=== PATIENT | female | born 1960 | race Two or more races ===

== ENCOUNTER 2025-01-23 07:30 | Observation (INO) | payer MEDICARE, MEDICAID ==
[~2025-01-23] VITALS: Ht 157.5 cm; Wt 80.3 kg
[~2025-01-23 07:30] MED LIST: ALBU8HFA INH; AMIT10TA13 PO; ENAL20TA75 PO; IBUP-1986 PO; PARO10TA4 PO; SIMV5TAB58 PO
[2025-01-23] MEDS ORDERED: IPRA3AMP31 NEB (17:15)
[2025-01-24] VITALS (18 sets, daily range): BP systolic 106–160; BP diastolic 67–101; PULSE 54–80; RESP 10–21; TEMP 97.9–99.5; O2SAT 95–100
[2025-01-24] MEDS: ringers solution, lacted 1,000 ML IV SCH ×2 (05:30→14:35)
[2025-01-24] MEDS: ceFAZolin 2gm/dext,iso 50mL 50 ML IV ONE (05:30)
[2025-01-24] MEDS: VANCOMYCIN/H2O 1.5g/300mL PB 300 ML IV ONE (13:31)
[2025-01-24 13:45] LABS: MEAN PLATELET VOLUME 8.3 FL (7.4-10.4); PRE OP HEMATOCRIT 39.4 % (35.0-45.0); PRE OP HEMOGLOBIN 12.8 g/dL (12.0-16.0); PRE OP PLATELET COUNT 289 X10'3 (140-440); PRE OP WHITE BLOOD COUNT 5.1 10'3 (4.8-10.8); RED CELL DISTRIBUTION WIDTH 15.0 % (11.5-14.5)
[2025-01-24] MEDS: albuterol 2.5 MG/3 ML nebule NEB PRN (13:45)
[2025-01-24 13:57] LABS: PRE OP ANION GAP 7 (8-16); PRE OP AST 15 U/L (10-37); PRE OP BILIRUB, TOTAL 0.4 MG/DL (0.0-1.0); PRE OP GLUCOSE 97 MG/DL (70-104); PRE OP POTASSIUM 4.0 MMOL/L (3.4-5.1); PRE OP SODIUM 141 MMOL/L (135-145); TOTAL CARBON DIOXIDE 29.0 MMOL/L (24-32)
[2025-01-24 14:02] LABS: CREATININE 0.53 MG/DL (0.40-0.90); eCRCL 84 ML/MIN; eGFR > 90 ML/MIN
[2025-01-24] MEDS ORDERED: FLUT1BLS13 INH (14:03)
[2025-01-24] MEDS ORDERED: BUPIVACAINE/MELOXICAM 14 ML VIAL IL ONE (14:08)
[2025-01-24] MEDS ORDERED: ondansetron/PF 4mg/2ml inj IV PRN ×2 (14:30→14:35)
[2025-01-24] MEDS ORDERED: magnesium hydroxide 30ml (MOM) UD suspension PO PRN (14:30)
[2025-01-24] MEDS ORDERED: bisacodyl 10mg suppository rectal RC PRN (14:30)
[2025-01-24] MEDS ORDERED: ipratropium/albuterol 3ml nebule NEB PRN (14:30)
[2025-01-24] MEDS ORDERED: albuterol 2.5 MG/3 ML nebule NEB PRN (14:30)
[2025-01-24] MEDS ORDERED: oxyCODONE IR 5mg (immed. release) tablet PO PRN (14:30)
[2025-01-24] MEDS ORDERED: acetaminophen 1,000mg/100ml IV 100 ML IV PRN (14:35)
[2025-01-24] MEDS ORDERED: labetalol 20mg/4ml (5mg/ml) syringe IV PRN (14:35)
[2025-01-24] MEDS ORDERED: hydrALAZINE 20mg/ml inj. IV PRN (14:35)
[2025-01-24] MEDS ORDERED: morphine 4 MG/ML inj SYRINge IV PRN (14:35)
[2025-01-24] MEDS ORDERED: HYDROmorphone/PF 0.2 MG/ML SYRINGE IV PRN ×2 (14:35)
[2025-01-24 15:48] LABS: PRE OP ALT 20 U/L (30-65)
[2025-01-24] MEDS: ibuprofen tablet 400 MG TABLET PO SCH (16:00)
[2025-01-24] MEDS: ceFAZolin/D5W- 1GM premix 50 ML IV SCH (16:00)
[2025-01-24] MEDS ORDERED: fentaNYL/PF 50MCG/1 ML 2ML syringe ONE (16:23)
[2025-01-24] MEDS ORDERED: MIDAZolam 1 MG/ML 5ML VIAL ONE (16:23)
[2025-01-24] MEDS ORDERED: phenylephrine 10mg/ml inj. ONE (16:30)
[2025-01-24] MEDS ORDERED: ROPIVAcaine 0.5% (5mg/ml) 30ml vial ONE (18:29)
[2025-01-24] MEDS ORDERED: propofol inj 20 ML IV ONE ×2 (18:29)
[2025-01-24] MEDS ORDERED: midazolam 1 mg/ML 2ml injection ONE (18:29)
--- NOTE | 2025-01-24 18:46 | OPERATIVE REPORT ---
Operative Report Operative Report Procedure: Computer-assisted, robotically-assisted, left total knee arthroplasty. Surgeon: Dr. Edi Lindsey Mattress Filling Machine Tender: Yordy Tello MD Anesthesiologist: Dr. Diallo Anesthesia: Spinal anesthetic Indications: 64-year-old female who has chronic osteoarthritis of the left knee with severe pain and limitation of activities despite extensive non-operative management. This patient has had extensive conservative treatment of knee joint arthritis, including rest, external joint support, anti-inflammatory medications, physical therapy, and corticosteroid injection. Physical therapy has been provided, along with a home exercise program prior to making the decision to proceed with surgical treatment. This therapeutic intervention did not provide any substantial relief of symptoms or improvement in function. The patient has been utilizing a cane, set of crutches, or walker, for more than 3 months prior to deciding to proceed with surgery. These interventions have not provided sufficient relief of pain to allow improvement in function. The patient has utilized non-steroidal anti-inflammatory medications for relief of pain over an extended period of time (more than 2 months), and has not experienced sufficient improvement in symptoms. Despite these treatments, this patient has continued difficulties with pain and limited function. They are unable to walk long distances, do vigorous activities, sit or sleep comfortably. Total knee replacement is the next reasonable step in terms of treatment. Indications for vet assistant surgeon: A second set of skilled hands with specific orthopedic knowledge of the surgical procedure and orthopedic surgical techniques was necessary to accomplish this operation successfully, and with the least amount of morbidity for the patient. This facilitated operative exposure, manipulation and handling of tissues, placement of any implants, and accomplishment of wound closure. Findings: There was indeed a very severely arthritic knee, with loss of cartilage, exposed bone, and marginal osteophytes. The lateral compartment was particularly bad. A 10 degree valgus deformity and 1 degree extension deformity were measured preoperatively. Post operative alignment was 0 varus, and 0 extension. Complications: None Estimated Blood Loss: 150 mL Implants: A Ernie Persona CR total knee system was utilized with a size 7 left femoral component, a size E left tibial component with a smart stem, and a 35 mm patellar component. A 14 mm medial congruent left tibial insert was utilized. The [employer] robotically assisted total knee arthroplasty system and computer was utilized. Procedure: The risks, benefits, expected results, and possible complications of the planned procedure had been explained to the patient and informed consent obtained. The patient was taken to the operating room and underwent a spinal ane sthetic. The patient was placed in the supine position on the operating table, and the left leg was prepped and draped in the usual fashion. A timeout was taken prior to surgery, confirming patient identification, operative side operative site, planned procedure, administration of pre-operative antibiotics, site marking, and presence of all necessary implants and instruments, x-rays and equipment. A standard anterior, slightly lateral approach was performed with a medial parapatellar arthrotomy, and a VMO split. Time was then spent removing excessive synovial tissue and exposing the medial and lateral gutters, as well as moving t he anterior sections of the residual menisci. The patella was mobilized to be able to be retracted laterally. This gave exposure of the anterior aspect of the knee. Attention was then directed to the patella. An oscillating saw was utilized to make a flat cut in a freehand manner, removing approximately 9 mm of thickness. The patella was then sized and drilled for the appropriate size patella implant. Infrared arrays were then placed on the distal shaft of the femur anteriorly, and the proximal tibia medially. Utilizing the [employer] computer system, the hip, knee, and ankle were landmarked in usual fashion. The initial alignment measu rements were then taken confirming the above listed deformity. Surgical planning was then carried out on the computer, confirming alignment of components, sizing, and gap balancing. Appropriate soft tissue releases were performed. The vet assistant surgeon was instrumental in maintaining exposure and tissue management and protecting vital structures. The robot was then utilized to perform all distal femoral cuts. The femur was prepared in 4 degrees of flexion and neutral coronal alignment. The robot was then utilized to cut the proximal tibia in 5 degrees of flexion and neutral coronal alignment. The computer was then utilized to check longitudinal alignment and soft tissue balance, and this confirmed excellent alignment. Next the dynamic balancing block was utilized to check and adjust soft tissue balancing. Finally, attention was directed to the proximal tibia. The implant was sized and properly rotated, the central drill, and the fin punch performed. Final check of alignment and balancing was then carried out, as well as final removal and cleaning up of soft tissue such as meniscal remnants and osteophytes. A tourniquet was inflated to 300 mmHg after exsanguination of the leg with an Esmarch. Cement was then mixed; 2 batches were utilized, mixed together, for the tibia, the femur and the patella. The cut surface of the tibia was thoroughly lavaged with the pulsating lavage and then dried. The tibia was impacted with the mallet, seating it quite nicely in its proper rotational alignment. Excess cement was removed from around the margins. The femoral cuts were cleaned with a pulsating lavage and then dried with the lap sponges, and the femur was impacted into position with a mallet. The patella was held firmly in place with a clamp. Excess cement was removed around the margins of the components as the cement cured. Pressure was held on the femoral component and tibia by placing a spacer and bringing the leg to full extension and applying axial and hyperextension force. Upon complete hardening of all cement, the knee was inspected and excess cement removed. We lavaged the knee to wash out any debris and checked to make sure we had no impinging cement. The trial spacer was replaced and overall alignment checked with computer, ensuring we had full extension of the knee, and appropriate medial and lateral soft tissue balance, as well as flexion and extension balance. The tourniquet was deflated and hemostasis obtained with electrocautery. The wound was irrigated thoroughly one more time and then dried with lap sponges. The final tibial spacer was impacted and locked into the locking mechanism without difficulty. After final irrigation and suction of excess fluid, the knee was infiltrated with Zynrelief for postoperative pain control. The tibial and femoral na vigation pins and arrays were removed. The tourniquet was then deflated, tourniquet time was 12 minutes. The wound was then closed in layers including retinacular closure, subcutaneous tissue, and skin. A sterile dressing was applied and the patient was returned to the recovery room in satisfactory condition. EDI LINDSEY MD Jan 24, 2025 18:46
[2025-01-24] MEDS: vancomycin/NS 1 GM ADD-VANTAGE 250 ML IV SCH (21:14)
[2025-01-24] MEDS: potassium cl 20mEq in 1/2 NS 1,000 ML IV SCH (21:15)
[2025-01-25] VITALS (7 sets, daily range): BP systolic 133–140; BP diastolic 74–85; PULSE 92; RESP 15–18; TEMP 97.4–97.5; O2SAT 94–98
[2025-01-25] MEDS: ceFAZolin/D5W- 1GM premix 50 ML IV ONE ×2 (01:19→11:07)
[2025-01-25] MEDS: oxyCODONE IR 5mg (immed. release) tablet PO PRN (03:26)
[2025-01-25 05:44] LABS: MEAN PLATELET VOLUME 8.2 FL (7.4-10.4); RED CELL DISTRIBUTION WIDTH 14.7 % (11.5-14.5)
[2025-01-25 05:55] LABS: TOTAL CARBON DIOXIDE 23.3 MMOL/L (24-32)
[2025-01-25] MEDS: HYDROmorphone inj. 0.5 MG/0.5 ML DISP.SYRIN IV PRN (11:02)
--- NOTE | 2025-01-25 11:11 | DISCHARGE SUMMARY ---
Discharge Summary [facility] ~ Discharge Summary *Problems/Diagnosis: (1) Osteoarthritis of left knee Status: Chronic Admission Diagnosis: osteoarthritis Discharge Diagnosis\Comment: same Operations\Procedures L TSA Consultants: None Complications: none Condition on DC: Stable Discharge Summary: On the day of admission the patient underwent knee replacement. This was well tolerated anddid well in therapy. She was discharged to home the following day Medications Home Meds: Home Medications Active Reported Fluticasone-Salmeterol 250-50 (Fluticasone Propion/Salmeterol) 250 Mcg-50 Mcg/Dose Blst.w.dev 1 Puffs INH BID Duoneb 2.5-0.5 Mg/3 Ml Soln (Ipratropium/Albuterol Sulfate) 0.5 Mg-3 Mg (2.5 Mg Base)/3 Ml Ampul.neb 1 Vial NEB Q6H PRN 30 Days Ibuprofen 800 Mg Tablet 1 Tab PO Q8H Pro-Air Inhaler (Albuterol) 8.5 Gm Inhaler 2 Puffs INH Q4HPRN PRN Zocor* (Simvastatin) 5 Mg Tablet 2 Tab PO HS PAXIL tablet (Paroxetine Hcl) 10 Mg Tablet 2 Tab PO DAILY Vasotec* (Enalapril Maleate) 20 Mg Tablet 1 Tab PO DAILY Amitriptyline HCl 10 Mg Tablet 1 Tab PO HS Problem Qualifiers (1) Osteoarthritis of left knee: Qualified Codes: M17.12 - Unilateral primary osteoarthritis, left knee EDI MALIK MD Jan 25, 2025 11:11
== END 2025-01-25 12:26 | disposition home health service (06) ==
LOC: INTOOBSV 01-24 12:31 → PAS IN 01-24 12:31 → ORTHO 4S 01-24 19:47
PROVIDERS: ADMIT Orthopaedic Surgery; ATTEND Orthopaedic Surgery
DX: M17.12 Unilateral primary osteoarthritis, left knee (principal); M21.062 Valgus deformity, not elsewhere classified, left knee; I10 Essential (primary) hypertension; E78.5 Hyperlipidemia, unspecified; F32.9 Major depressive disorder, single episode, unspecified; Z91.040 Latex allergy status; Z79.899 Other long term (current) drug therapy; Z98.890 Other specified postprocedural states
CPT/HCPCS: 36415; 80051; 80053; 82948; 85025; 87081; 94640; 94760; 96365; 96366; 96367; 96375; 97110; 97116; 97161; 97530; A4215; A6449; A7000; C1713; C1776; C9088; G0378; J0690; J1171; J2250; J2371; J2704; J2795; J3010; J3373; J3375; J3480; J7120